=== PATIENT | female | born 1965 | race Caucasian/White ===

== ENCOUNTER → 2021-07-23 | Day surgery (SDC) | payer OTHER ==
[~2021-07-23] VITALS: Ht 167.6 cm; Wt 81.6 kg
[~2021-07-23] MED LIST: ANTIVERT25 MG PO; ATORVASTATIN CA80 MG PO; BACLOFEN10 MG PO; CYCLOBENZAPRINE10 MG PO; DIAZEPAM 5MG TAB5 MG PO; EZETIMIBE10 MG PO; LASIX20 MG PO; LOPRESSOR25 MG PO; OXY-IR 5MG5 MG PO; POTASSIUM CHLO10 MEQ PO; PRILOSEC20 MG PO; QUETIAPINE FUM200 MG PO; XIFAXAN550 MG PO
[2021-07-23 13:24] LABS: BASOPHIL 0.6 % (0-2); EOSINOPHIL 0.8 % (0-5); HGB 14.2 g/dl (12.5-16.0); LYMPHOCYTE 20.8 % (15-48); MCHC 33.8 g/dL (32.0-36.0); MCV 85.7 fL (78.0-100.0); MONOCYTE 8.6 % (0-12); MPV 9.1 fL (6.0-9.5); NEUTROPHIL 68.5 % (41-80); NRBC 0; PLT 182 K/uL (150-400); WBC 8.8 K/uL (4.0-10.5)
[2021-07-23 13:48] LABS: ALBUMIN 3.8 g/dL (3.4-5.0); BILIRUBIN - TOTAL 0.4 mg/dL (0.2-1.0); BUN/CREAT RATIO (CALC) 16.9 RATIO; CREATININE 0.71 mg/dL (0.51-0.95); GLOBULIN (CALCULATION) 4.5 g/dL; POTASSIUM 3.6 mmol/L (3.5-5.1); TOTAL PROTEIN 8.3 g/dL (6.4-8.2)
[2021-07-23 14:13] LABS: INR 1.14 (0.9-1.2); PTT 27.8 SECONDS (24.4-34.7)
== END | disposition home or self-care (01) ==
LOC: FAS 10:44
PROVIDERS: Oral & Maxillofacial Surgery
DX: K02.9 Dental caries, unspecified (principal); K04.7 Periapical abscess without sinus; F10.20 Alcohol dependence, uncomplicated; K72.10 Chronic hepatic failure without coma; F17.200 Nicotine dependence, unspecified, uncomplicated; Z88.0 Allergy status to penicillin
CPT/HCPCS: D7140; D7210; D7310; 36415; 71045; 80053; 85025; 85610; 85730; 93005; J0330; J1100; J1170; J2250; J2405; J2704; J3010; J7120